=== PATIENT | female | born 1975 | race Caucasian/White ===

== ENCOUNTER 2017-06-07 10:33 | Emergency (ER) | payer OTHER ==
[2017-06-07 10:37] VITALS: BP 130/79; PULSE 98; TEMP 98.2; BMI 23.1
[2017-06-07] MEDS ORDERED: AMOX TR/POT CLAV 875MG/125MG TABLETS (FP) PO ONE (11:56)
--- NOTE | 2017-06-07 11:56 | PDOC ---
History of Present Illness - General Chief Complaint: Toothache Stated Complaint: TOOTHACHE Time Seen by Provider: 06/07/17 10:57 History Source: Patient Exam Limitations: No Limitations - History of Present Illness Initial Comments: 06/07/17 11:51 Patient states had a filling loss of the upper left front molar on Wednesday and since that time has progressive worsening of pain and noted this morning on abscess/swelling to the gingival surface of that tooth. She her dentist but not until . Denies fever, no other dental issue 06/07/17 11:51 06/07/17 16:38 Timing/Duration: unsure Severity: mild, moderate Associated Symptoms: reports: denies symptoms. denies: fever/chills Past History - Travel Traveled outside of the country in the last 30 days: No Close contact w/someone who was outside of country & ill: No - Past Medical History Allergies/Adverse Reactions: Allergies Allergy/AdvReac Type Severity Reaction Status Date / Time No Known Allergies Allergy Verified 06/07/17 10:37 Home Medications: Ambulatory Orders Acetaminophen W/ Codeine #3 [Tylenol # 3] 1 combo PO Q4H PRN #14 tablet MDD 8 Amox-Tr/K Cl [Augmentin 875Mg Tablet] 1 tab PO BID #14 tablet 06/07/17 - Psycho/Social/Smoking Cessation Hx Anxiety: No Suicidal Ideation: No Smoking History: Never smoked Have you smoked in the past 12 months: No Information on smoking cessation initiated: No Hx Alcohol Use: No Drug/Substance Use Hx: No Substance Use Type: None Review of Systems - Review of Systems Able to Perform ROS?: Yes Is the patient limited Ukrainian proficient: Yes Constitutional: Yes: Symptoms Reported, See HPI, Malaise. No: Fever HEENTM: Yes: Symptoms Reported, See HPI, Mouth Pain, Dental Problems. No: Throat Swelling Respiratory: No: Symptoms reported Musculoskeletal: Yes: Symptoms Reported Integumentary: Yes: Symptoms Reported, See HPI All Other Systems: Reviewed and Negative *Physical Exam - Vital Signs Last Vital Signs Temp Pulse Resp BP Pulse Ox 98.2 F 98 H 18 130/79 100 06/07/17 10:34 06/07/17 10:34 06/07/17 10:34 06/07/17 10:34 06/07/17 10:34 - Physical Exam General Appearance: Yes: Nourished, Appropriately Dressed, Apparent Distress, Moderate Distress HEENT: positive: INGE, TMs Normal, Pharynx Normal, Other (left upper first molar with loss of filling - 1 cm fluctuant lesion to the lateral gingival surface of palate adjacent to tooth with decay.). negative: Normal ENT Inspection Neck: positive: Supple. 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 We will start on Augmentin, given Tylenol #3- 14 tabs and instructed to obtain a follow-up with dentist on 06/07/17 16:41 06/07/17 16:41 06/08/17 22:40 *DC/Admit/Observation/Transfer Diagnosis at time of Disposition: Abscess, dental - Discharge Dispostion Disposition: HOME Condition at time of disposition: Stable Admit: No - Prescriptions Prescriptions: Amox-Tr/K Cl [Augmentin 875Mg Tablet] 1 tab PO BID #14 tablet Acetaminophen W/ Codeine #3 [Tylenol # 3] 1 combo PO Q4H PRN #14 tablet MDD 8 PRN Reason: Pain - Referrals Referrals: Ramonita Griggs MD [Primary Care Provider] - - Patient Instructions Printed Discharge Instructions: DI for Tooth Abscess Additional Instructions: Rest, drink lots of fluids: Teas, water, soups Saltwater gargles/ keep mouth clean and rinse after each meal May use wet teabag for pain relief to area Avoid hard chewing foods, stick to ice cream, Jell-O, yogurt etc. Tylenol or Motrin for fever and pain Complete all medication as prescribed Seek dental appointment as soon as possible for evaluation of dental injury/pain Followup with private physician in one to 2 days as needed Return to emergency department for worsened symptoms, fevers, swelling to face or worsened pain - Post Discharge Activity Work/School Note: Back to Work
[2017-06-07] MEDS ORDERED: ACETAMINOPHEN WITH CODEINE 300MG/30MG TABLET PO STA ×2 (11:57)
[2017-06-07] MEDS ORDERED: AMOX TR/POT CLAV 875MG/125MG TABLETS (FP) ONE (11:59)
== END 2017-06-07 12:07 | disposition home or self-care (01) ==
LOC: JERFT 10:33
DX: K04.7 Periapical abscess without sinus (principal)
CPT/HCPCS: 99281-25

== ENCOUNTER 2018-01-21 15:45 | Emergency (ER) | payer OTHER ==
--- NOTE | 2018-01-21 15:54 | PDOC ---
Rapid Medical Evaluation Time Seen by Provider: 01/21/18 15:50 Medical Evaluation: Allergies Allergy/AdvReac Type Severity Reaction Status Date / Time No Known Allergies Allergy Verified 01/21/18 15:50 01/21/18 15:50 I have performed a brief in-person evaluation of this patient. The patient presents with a chief complaint of: feeling dizzy at 12 pm , ate a little snack, left arm was numb, "whole body was warm", denies blurry vision/ unilateral weakness, "right now my L hand feels tingling", denies any PMH Pertinent physical exam findings: well appearing, no focal deficits I have ordered the following: labs The patient will proceed to the ED for further evaluation. Discharge Disposition - Diagnosis Dizziness - Referrals Referrals: Ramonita Griggs MD [Primary Care Provider] - - Patient Instructions - Post Discharge Activity
[2018-01-21 15:55] VITALS: BP 128/86; PULSE 100; TEMP 97.7; BMI 23.6
--- NOTE | 2018-01-21 16:23 | PDOC ---
History of Present Illness - General Chief Complaint: Lightheaded Stated Complaint: Lightheaded Time Seen by Provider: 01/21/18 15:50 History Source: Patient Exam Limitations: No Limitations - History of Present Illness Initial Comments: 01/21/18 19:12 Patient is a 42-year-old female with no past medical history who presents emergency department today for an episode of lightheadedness, dizziness and left hand numbness. Patient states she was at work when suddenly her left arm went numb and felt heavy. She states that she also felt dizzy at that time. Her symptoms lasted for approximately 10 minutes and then past. She states that at this time she feels like her hand is still little numb. She says that this is happened to her before when she is to get migraines however she does not have a migraine at this time. Denies fevers, chills, recent illness, sore throat, chest pain, shortness of breath, nausea, vomiting, diarrhea, , urgency hematuria, focal weakness. Past History - Travel Traveled outside of the country in the last 30 days: No Close contact w/someone who was outside of country & ill: No - Past Medical History Allergies/Adverse Reactions: Allergies Allergy/AdvReac Type Severity Reaction Status Date / Time No Known Allergies Allergy Verified 01/21/18 15:50 Home Medications: Ambulatory Orders NK [No Known Home Medication] 01/21/18 COPD: No - Suicide/Smoking/Psychosocial Hx Smoking History: Never smoked Have you smoked in the past 12 months: No Information on smoking cessation initiated: No Hx Alcohol Use: No Drug/Substance Use Hx: No Substance Use Type: None Review of Systems - Review of Systems Able to Perform ROS?: Yes Comments:: 01/21/18 17:04 CONSTITUTIONAL: Absent: fever, chills, diaphoresis, generalized weakness, malaise, loss of appetite HEENT: Absent: rhinorrhea, nasal congestion, throat pain, throat swelling, difficulty swallowing, mouth swelling, ear pain, eye pain, visual Changes CARDIOVASCULAR: Absent: chest pain, loss of consciousness, palpitations, irregular heart rate, peripheral edema RESPIRATORY: Absent: cough, shortness of breath, dyspnea with exertion, orthopnea, wheezing, stridor, hemoptysis GASTROINTESTINAL: Absent: abdominal pain, abdominal distension, nausea, vomiting, diarrhea, constipation, melena, hematochezia GENITOURINARY: Absent: dysuria, frequency, urgency, hesitancy, hematuria, flank pain, genital pain MUSCULOSKELETAL: Absent: myalgia, arthralgia, joint swelling SKIN: Absent: rash, itching, pallor HEMATOLOGIC/IMMUNOLOGIC: Absent: easy bleeding, easy bruising, lymphadenopathy, frequent infections ENDOCRINE: Absent: unexplained weight gain, unexplained weight loss, heat intolerance, cold intolerance NEUROLOGIC: Present: dizziness, numbness in the L arm. Absent: headache, focal weakness or paresthesias, dizziness, unsteady gait, seizure, mental status changes, bladder or bowel incontinence PSYCHIATRIC: Absent: anxiety, depression, suicidal or homicidal ideation, hallucinations. Is the patient limited Greek proficient: No *Physical Exam - Vital Signs Last Vital Signs Temp Pulse Resp BP Pulse Ox 97.7 F 100 H 18 128/86 100 01/21/18 15:51 01/21/18 15:51 01/21/18 15:51 01/21/18 15:51 01/21/18 15:51 - Physical Exam Comments: 01/21/18 19:05 GENERAL: Well developed, well nourished. Awake and alert. No acute distress. HEENT: Normocephalic, atraumatic. PERRLA, EOMI. No conjunctival pallor. Sclera are non- icteric. Moist mucous membranes. Oropharynx is clear. NECK: Supple. Full ROM. No JVD. Carotid pulses 2+ and symmetric, without bruits. No thyromegaly. No lymphadenopathy. CARDIOVASCULAR: Regular rate and rhythm. No murmurs, rubs, or gallops. Distal pulses are 2+ and symmetric. PULMONARY: No evidence of respiratory distress. Lungs clear to auscultation bilaterally. No wheezing, rales or rhonchi. ABDOMINAL: Soft. Non-tender. Non-distended. No rebound or guarding. No organomegaly. Normoactive bowel sounds. MUSCULOSKELETAL Normal range of motion at all joints. No bony deformities or tenderness. No CVA tenderness. EXTREMITIES: No cyanosis. No clubbing. No edema. No calf tenderness. SKIN: Warm and dry. Normal capillary refill. No rashes. No jaundice. NEUROLOGICAL: Alert, awake, appropriate. Cranial nerves 2-12 intact. No deficits to light touch and temperature in face, upper extremities and lower extremities. No motor deficits in the in face, upper extremities and lower extremities. Normoreflexic in the upper and lower extremities. Normal speech. Toes are down- going bilaterally. Gait is normal without ataxia. No dysmetira/dysarthria. 2 point discrimination intact in the R hand. No c PSYCHIATRIC: Cooperative. Good eye contact. Appropriate mood and affect. ED Treatment Course - LABORATORY CBC & Chemistry Diagram: 01/21/18 16:25 01/21/18 16:25 Medical Decision Making - Medical Decision Making 01/21/18 17:12 Patient is a 42-year-old female presents emergency department today with an episode of numbness tingling to her left hand and arm. In association with dizziness. Upon arrival her symptoms had resolved. On exam there is no focal neuro deficits, 2 point discrimination intact with no numbness or tingling. Low risk for ACS at this time as well. We will order basic lab work, head CT. 01/21/18 19:00 Sign out given to PRIMO Anglin. Pt. pending CT and lab results. *DC/Admit/Observation/Transfer Diagnosis at time of Disposition: Dizziness, Hand numbness - Discharge Dispostion Disposition: HOME Condition at time of disposition: Stable Admit: No - Referrals Referrals: Ed Guerrero MD [Staff Physician] - Usman Verdin MD [Staff Physician] - Ramonita Griggs MD [Primary Care Provider] - - Patient Instructions Printed Discharge Instructions: DI for Numbness/tingling Additional Instructions: Your head CT was normal today. Your symptoms had resolved by arrival ED. Keep a diary as to when he lightheaded or this dizziness to see if there is a pattern. Please follow up with neurology this week. A referral has been provided for you. Return to emergency department if he developed new numbness and tingling, lightheadedness, dizziness, passed out, or give any changes in her symptoms. Dr. Guerrero/Cardiology [phone] Dr[address] Verdin/Neurology [phone] - Post Discharge Activity Forms/Work/School Notes: Back to Work
[2018-01-21 16:33] LABS: BASO % 0.5 % (0-2.0); EOS % 0.5 % (0-4.5); HEMATOCRIT 32.3 % (32.4-45.2); HEMOGLOBIN 10.9 GM/dL (10.7-15.3); LYMPH % 17.8 % (8-40); MCH 27.8 pg (25.7-33.7); MCHC 33.8 g/dl (32.0-36.0); MEAN CELL VOLUME 82.1 fl (80-96); MEAN PLT VOLUME 9.1 fl (7.5-11.1); MONO % 6.4 % (3.8-10.2); NEUT % 74.8 % (42.8-82.8); PLATELET COUNT 274 K/MM3 (134-434); RBC 3.93 M/mm3 (3.60-5.2); RDW 13.4 % (11.6-15.6); WHITE BLOOD COUNT 7.1 K/mm3 (4.0-10.0)
[2018-01-21 16:38] LABS: URINE APPEARANCE CLEAR; URINE BILIRUBIN NEGATIVE (<2.0 mg/dL); URINE BLOOD NEGATIVE (NEGATIVE); URINE COLOR STRAW; URINE GLUCOSE (UA) NEGATIVE (NEGATIVE); URINE KETONE TRACE (NEGATIVE); URINE LEUK ESTERASE NEGATIVE (NEGATIVE); URINE NITRITE NEGATIVE (NEGATIVE); URINE PROTEIN NEGATIVE (NEGATIVE); URINE UROBILINOGEN NEGATIVE mg/dL (0.2-1.0)
[2018-01-21 17:09] LABS: ALBUMIN 4.1 g/dl (3.4-5.0); ALK PHOS 60 U/L (45-117); ANION GAP 4 (8-16); BILIRUBIN,TOTAL 0.2 mg/dL (0.2-1.0); BLOOD UREA NITROGEN 12 mg/dL (7-18); CALCIUM 8.5 mg/dL (8.5-10.1); CHLORIDE 111 mmol/L (98-107); CO2 26 mmol/L (21-32); CREATININE 0.9 mg/dL (0.55-1.02); GLUCOSE,RANDOM 131 mg/dL (74-106); POTASSIUM 4.1 mmol/L (3.5-5.1); SGOT/AST 18 U/L (15-37); SGPT/ALT 17 U/L (12-78); SODIUM 141 mmol/L (136-145); TOT PROT 7.4 g/dl (6.4-8.2)
[2018-01-21 17:19] LABS: INR 1.01 (0.82-1.09); PROTHROMBIN TIME (PATIENT) 11.4 SEC (9.7-13.0)
--- NOTE | 2018-01-21 20:51 | PDOC ---
*Physical Exam - Vital Signs Last Vital Signs Temp Pulse Resp BP Pulse Ox 97.7 F 100 H 18 128/86 100 01/21/18 15:51 01/21/18 15:51 01/21/18 15:51 01/21/18 15:51 01/21/18 15:51 ED Treatment Course - LABORATORY CBC & Chemistry Diagram: 01/21/18 16:25 01/21/18 16:25 - ADDITIONAL ORDERS Additional order review: Laboratory Results 01/21/18 01/21/18 01/21/18 17:21 17:21 16:25 PT with INR INR Sodium Potassium Chloride Carbon Dioxide Anion Gap BUN Creatinine Creat Clearance w eGFR Random Glucose Calcium Total Bilirubin AST ALT Alkaline Phosphatase Troponin I < 0.02 Total Protein Albumin Beta HCG, Quant < 1.0 Urine Color Urine Appearance Urine pH Ur Specific [place] Urine Protein Urine Glucose (UA) Urine Ketones Urine Blood Urine Nitrite Urine Bilirubin Urine Urobilinogen Ur Leukocyte Esterase Blood Type O POSITIVE Antibody Screen Negative 01/21/18 01/21/18 01/21/18 16:25 16:25 16:25 PT with INR 11.40 INR 1.01 Sodium 141 Potassium 4.1 Chloride 111 H Carbon Dioxide 26 Anion Gap 4 L BUN 12 Creatinine 0.9 Creat Clearance w eGFR > 60 Random Glucose 131 H Calcium 8.5 Total Bilirubin 0.2 AST 18 ALT 17 Alkaline Phosphatase 60 Troponin I Total Protein 7.4 Albumin 4.1 Beta HCG, Quant Urine Color Straw Urine Appearance Clear Urine pH 7.0 D Ur Specific [place] 1.009 Urine Protein Negative Urine Glucose (UA) Negative Urine Ketones Trace H Urine Blood Negative Urine Nitrite Negative Urine Bilirubin Negative Urine Urobilinogen Negative Ur Leukocyte Esterase Negative Blood Type Antibody Screen 01/21/18 16:25 RBC 3.93 MCV 82.1 MCHC 33.8 RDW 13.4 MPV 9.1 Neutrophils % 74.8 Lymphocytes % 17.8 Monocytes % 6.4 Eosinophils % 0.5 Basophils % 0.5 Progress Note - Progress Note Progress Note: 42-year-old female presents to the ER with her sister complaining of left arm numbness with slight dizziness but states it was neither room spinning or the sensation of her spinning at approximately 12 noon today which subsided approximately 10 minutes later. Patient states prior to her symptoms, she was constantly lifting boxes when she was bending over and standing up. Patient states she has similar symptoms once before approximately 6 months ago which subsided within 10 minutes also. Patient states she's followed up with her physician. At the moment, patient denies dizziness, lightheadedness, headache, neck pains, back pains, facial pains, chest pain, shortness of breath, abdominal pains, bladder or bowel dysfunction, extremity numbness or tingling sensation. CT of the head without contrast is within normal limits. *DC/Admit/Observation/Transfer Diagnosis at time of Disposition: Dizziness, Hand numbness - Discharge Dispostion Disposition: HOME Condition at time of disposition: Stable Admit: No - Referrals Referrals: Usman Verdin MD [Staff Physician] - Ramonita Griggs MD [Primary Care Provider] - Ed Guerrero MD [Staff Physician] - - Patient Instructions Printed Discharge Instructions: DI for Numbness/tingling Additional Instructions: Your head CT was normal today. Your symptoms had resolved by arrival ED. Keep a diary as to when he lightheaded or this dizziness to see if there is a pattern. Please follow up with neurology this week. A referral has been provided for you. Return to emergency department if he developed new numbness and tingling, lightheadedness, dizziness, passed out, or give any changes in her symptoms. Dr. Guerrero/Cardiology [phone] Dr. Verdin/Neurology [phone] - Post Discharge Activity Forms/Work/School Notes: Back to Work
--- NOTE | 2018-01-22 11:31 | EKG ---
Test Reason : Blood Pressure : / mmHG Vent. Rate : 091 BPM Atrial Rate : 091 BPM P-R Int : 142 ms QRS Dur : 076 ms QT Int : 362 ms P-R-T Axes : 071 066 062 degrees QTc Int : 445 ms NORMAL SINUS RHYTHM NORMAL ECG NO PREVIOUS ECGS AVAILABLE Confirmed by KAE DAWKINS MD ([id number]) on 01/22/2018 11:31:00 AM Referred By: Confirmed By:KAE DAWKINS MD
== END 2018-01-21 23:56 | disposition home or self-care (01) ==
LOC: JER 15:45
DX: R42 Dizziness and giddiness (principal); R20.0 Anesthesia of skin
CPT/HCPCS: 36415; 70450-TC; 80053; 81003; 84484; 84702; 85025; 85610; 86850; 86900; 86901; 93005; 93010; 99285-25